=== PATIENT | male | born 1985 | race Hispanic/Latino ===

== ENCOUNTER → 2023-03-11 04:23 | Outpatient (REF) | payer BC, SELFPAY | LOC: CLAB 04:23 | PROVIDERS: ATTENDING PHYSICIAN Dermatology | DX: L30.8 Other specified dermatitis (principal) | CPT/HCPCS: 87102 ==

== ENCOUNTER → 2023-03-12 11:58 | Outpatient (REF) | payer BC, SELFPAY ==
[2023-03-12 15:28] LABS: % Basophils 0.6 % (0-2); % Eosinophils 3.9 % (0-6); % Immature Granulocytes 0.1 % (0-0.5); % Lymphocytes 33.6 % (20.5-51.1); % Monocytes 5.8 % (1.7-9.3); Absolute Eosinophils 0.3 10^3/uL (0-0.7); Absolute Lymphocytes 2.4 10^3/uL (1.2-3.4); Absolute Monocytes 0.4 10^3/uL (0.1-0.6); Hematocrit 47.9 % (39.0-52.0); Hemoglobin 16.5 g/dL (13.0-18.0); Mean Corp Hgb Conc. 34.4 g/dL (33.0-37.0); Mean Corpuscular Hgb 28.8 pg (27.0-31.0); Mean Corpuscular Volume 83.6 fL (80.0-94.0); Mean Platelet Volume 10.3 fL (7.4-10.4); Nucleated Red Blood Cells % 0 % (-); Platelet Count 298 10^3/uL (130-400); Red Blood Cell Count 5.73 10^6/uL (4.70-6.10); Red Cell Dist. Width 12.5 % (11.5-14.5); White Blood Cell Count 7.2 10^3/uL (4.8-10.8)
[2023-03-12 15:45] LABS: ALT (SGPT) 43 U/L (0-50); AST (SGOT) 29 U/L (17-59); Albumin 4.8 g/dl (3.5-5.0); Alkaline Phosphatase 89 U/L (38-126); Blood Urea Nitrogen 17 mg/dl (9-20); Calcium 9.9 mg/dl (8.4-10.2); Carbon Dioxide 26 mmol/L (22-30); Chloride 103 mmol/L (98-107); Glucose 110 mg/dl (70-99); Potassium 4.5 mmol/L (3.5-5.1); Sodium 136 mmol/L (135-145); Total Bilirubin 1.4 mg/dl (0.2-1.3); eGFR > 60.00
[2023-03-12 16:03] LABS: Free T4 1.17 ng/dl (0.78-2.19)
[2023-03-12 16:17] LABS: TSH 1.33 uIU/ml (0.47-4.68)
[2023-03-15 02:39] LABS: ANA, IgG Reflex to HEp-2 None Detected (None Detected)
== END ==
LOC: HWLAB 11:58
PROVIDERS: ATTENDING PHYSICIAN Nurse Practitioner Primary Care
DX: D89.89 Other specified disorders involving the immune mechanism, not elsewhere classified (principal)
CPT/HCPCS: 36415; 80053; 84439; 84443; 85025; 86038